=== PATIENT | male | born 1960 | race Caucasian/White ===

== ENCOUNTER 2017-01-15 10:23 | Inpatient (IN) | payer MEDICARE ==
--- NOTE | ~2017-01-15 | CN ---
Consultation Report [facility] [address] [place]. [address] NAME: VINNY STAUFFER : 58 STATUS : ADM IN PAT#: [id number] AGE: 56 ADM/REG DATE : 01/15/17 MR#: [id number] REPORT SERV DATE: 01/16/17 DICTATED BY: KAM RAZO DATE: 01/15/17 REPORT STATUS : Draft TRANSCRIBED BY: MODL DATE: 01/15/17 GI CONSULTATION DATE OF CONSULTATION: 01/15/2017 REASON FOR CONSULTATION: Evaluation and management of acute blood loss anemia and melanotic stools. HISTORY OF PRESENT ILLNESS: Mr. Stauffer is a 56-year-old male patient, who is known to Dr. Venkata Tirado, who presented to [facility] on the 01/15/2017 with a chief complaint of chest discomfort. He has history of recent coronary artery stenting with Dr. Bhatti in October of 2016 secondary to 60% to 70% stenosis. Per the 's report, he has been on the regimen of Brilinta since then. Per the patient's and 's report, he has had continued epigastric abdominal pain, chest discomfort since his stents were placed. He states that he is on Zantac as well as Protonix. He took Mylanta today which helped his discomfort for a short period of time which have just returned with a vengeance per the . The patient states that he has noticed black stools for the last month. He has been markedly short of breath on exertion. He says barely just walking from his chair to the kitchen will cause some epigastric and chest discomfort. He has no nausea, vomiting, or dysphagia. No odynophagia. No bright red blood per rectum. He had EGD and colonoscopy with Dr. Tirado in December of 2013. Upper endoscopy showed Selina esophagitis, hiatal hernia, normal duodenum. Colonoscopy was done with colon where polyps being removed as well as non-thrombosed hemorrhoids being found. He was set to repeat his endoscopy this year actually. He is presently going for an echo. He has been on Brilinta. His last dose was yesterday. His admission hemoglobin was 6.4. He has received one unit of packed red blood cells and that only improved it to 7.0. His INR is 1.1 with a negative troponin. I have discussed with the patient as well as , we will set him up for upper endoscopy to be done tomorrow with Dr. James. I did discuss risks, benefits, alternatives, and complications to include, but not limited to risk of bleeding, perforation, infection, reaction to medications, as well as cardiac and pulmonary side effects. They are agreeable to proceed. PAST MEDICAL HISTORY: Positive for coronary artery disease, stenting in October 2016, on Brilinta and aspirin; dizziness; migraines; hypertension; COPD with continued tobacco abuse; back surgery and spinal fusion; GERD; hiatal hernia, GI bleed, internal hemorrhoids, anxiety. PAST SURGICAL HISTORY: Back surgery, tonsillectomy, heart catheterization, PCI, back injections. SOCIAL HISTORY: Past history of alcoholism, last drink approximately one year ago. Pain Management with chronic back pain. Positive tobacco 1-1/2 packs per day. FAMILY HISTORY: Positive for colon polyps. Consultation Report [address] [address] NAME: VINNY STAUFFER : 58 STATUS : ADM IN [facility]#: [id number] AGE: 56 ADM/REG DATE : 01/15/17 MR#: [id number] REPORT SERV DATE: 01/16/17 DICTATED BY: KAM RAZO DATE: 01/15/17 REPORT STATUS : Draft TRANSCRIBED BY: LIZ DATE: 01/15/17 ALLERGIES: LISTED TO PAXIL, DOXYCYCLINE, ERYTHROMYCIN, PRILOSEC, PREVACID. HOME MEDICATIONS: Aspirin, Proventil, Cardia, Zantac, Protonix, Spiriva, Symbicort, Crestor, Pravachol, Valium, Endocet, Clozaril, Brilinta, MiraLAX, and nitroglycerin. REVIEW OF SYSTEMS: A 10-point review of systems obtained, pertinent positives addressed in the history of present illness. PHYSICAL EXAMINATION: VITAL SIGNS: Temperature 98.7, pulse 76, respirations 20, blood pressure 147/65. NEURO: Reveals an alert, male, resting in bed with no focal deficits. GENERAL: Cooperative in no apparent distress. Awake, alert, and oriented x3. HEAD, EARS, EYES, NOSE, AND THROAT: Anicteric. Pupils equal, round, reactive to light accommodation. Normocephalic and atraumatic. NECK: No JVD. No palpable nodes. LUNGS: Diminished throughout. Coarse in the bases. Normal respiratory effort exhibited. CARDIOVASCULAR SYSTEM: Regular rate and rhythm. ABDOMEN: Round, soft, tenderness to palpation in the epigastric region. No rebound or guarding elicited on exam. Active bowel sounds in all four quadrants. EXTREMITIES: No edema. Normal distal pulses. SKIN: Warm, dry, and intact. PERTINENT LABORATORY DATA: Sodium is 140, potassium 4.5, BUN is 6, creatinine is 0.73. White count 7.5, hemoglobin 6.4 with a hematocrit of 20.3. It should be noted that in November, he had a hemoglobin of 10.7 with a hematocrit of 30.5. His MCV is 78.7, MCH is 24.8, MCH is 31.5, platelet count 247, INR of 1.1. ASSESSMENT AND PLAN: 1. Melanotic stools/upper gastrointestinal bleed. Question peptic ulcer disease, arteriovenous malformations. 2. Acute blood loss anemia, status post transfusion with slight increase. 3. History of coronary artery disease, status post stents in October 2016, on Brilinta, last dose 01/14/2017. 4. Epigastric abdominal pain. PLAN: 1. Transfuse an additional one unit of packed red blood cells. 2. N.p.o. after midnight. 3. Start Protonix drip. 4. EGD in the morning with Dr. James. We will follow H and H, transfuse as needed. Other recommendations to follow endoscopy. Consultation Report [address] [place]. [address] NAME: VINNY STAUFFER : 58 STATUS : ADM IN [facility]#: [id number] AGE: 56 ADM/REG DATE : 01/15/17 MR#: [id number] REPORT SERV DATE: 01/16/17 DICTATED BY: KAM ARZO DATE: 01/15/17 REPORT STATUS : Draft TRANSCRIBED BY: LIZ DATE: 01/15/17 GAGE/LIZ BIKA Lacey / [id number] CC: Karen Chow M.D.
--- NOTE | ~2017-01-15 | DS ---
Discharge Summary [facility] [address] [place]. [address] NAME: VINNY STAUFFER : 58 STATUS : DIS IN PAT#: [id number] AGE: 56 ADM/REG DATE : 01/15/17 MR#: [id number] REPORT SERV DATE: 01/18/17 DICTATED BY: YOUNG JACKSON DATE: 01/17/17 REPORT STATUS : Draft TRANSCRIBED BY: MODL DATE: 01/17/17 ADMISSION DATE: 01/15/2017 DISCHARGE DATE: 01/17/2017 CONSULTANTS: 1. Dewayne James M.D., GI. 2. Shar Jackson, PRESS CLEANER with Dr. Adonay Bhatti M.D., F.A.C.C., Cardiology. DISCHARGE DIAGNOSES: 1. Acute upper gastrointestinal bleed with melena unclear site of origin. 2. Acute blood loss anemia requiring transfusion two units packed red cells. 3. Coronary artery disease with recent PCI drug-eluting stent on 10/12/2016 at [facility] with Dr. Bhatti. 4. Chronic obstructive pulmonary disease in an active smoker. 5. History of chronic low back pain. 6. History of colonic polyps in the past. They were reported to be tubulovillous adenomas without high-grade dysplasia. 7. Previous suspected candidal esophagitis in 2013. 8. Hypertension. 9. Peripheral arterial disease involving the right carotid. HISTORY: This patient underwent a stent to an unknown vessel by Dr. Bhatti at [place] on 10/12/2016. It may have been the ostium of the second obtuse marginal. It was reported that it is a drug-eluting stent and as such he was sent home on aspirin and Brilinta. The patient states he developed some epigastric pain not only during the catheterization procedure, but had it intermittently thereafter located in the epigastrium, burning-type, pressure-type, nitroglycerin without help, Mylanta would help a little. He started on some Protonix a few days prior to coming to the emergency room, but had not gotten any benefit from it. He went to see Dr. Bhatti in the office. He felt like he was unable to walk very far because he was having this pain. He was sent to the emergency room where he was noted to have a hemoglobin of 6.4, and guaiac-positive stool. The patient states he was not taking any iron, not taking any Pepto-Bismol, not taking any charcoal capsules. The patient was admitted to our team and placed on Protonix infusion. He was given two units of packed red cells. His lowest hemoglobin was 6.4 on admission, at discharge it was 7.9. EGD the day after admission by Dr. James revealed normal esophagus, stomach, and duodenum. Colonoscopy preparation took place, he passed a black stool then it was more brownish and he had a colonoscopy on 01/17/2017 showing some nonbleeding internal hemorrhoids, otherwise normal exam. GI, Dr. James, recommends Protonix b.i.d. be continued for at least six weeks. Dr. James indicated it was fine to start the patient back on anti-platelet therapy as needed. Cardiology recommends that the patient get back on to his Brilinta and aspirin to reduce the risk of in-stent thrombosis and myocardial infarction. I have explained to the patient, on two occasions 01/16/2017 and 01/17/2017, and on the on one occasion on 01/16/2017 the importance of being back on these medicines even though we realize that he may bleed again. We stressed that if he has any recurrent black stools that he come to the emergency room. He has had no further chest pain. No further epigastric pain. He is Discharge Summary [address] [address] NAME: VINNY STAUFFER : 58 STATUS : DIS IN PAT#: [id number] AGE: 56 ADM/REG DATE : 01/15/17 MR#: [id number] REPORT SERV DATE: 01/18/17 DICTATED BY: YOUNG JACKSON DATE: 01/17/17 REPORT STATUS : Draft TRANSCRIBED BY: MODL DATE: 01/17/17 eating well. He is ambulating well. No nausea. No dyspnea. He is encouraged to stop smoking. He had a right carotid bruit. Carotid ultrasound revealed that he has moderate irregular plaque involving the carotid bulb and the proximal internal carotid artery on the right. There was mild disease on the left. The vertebral arteries are patent with antegrade flow bilaterally. The right internal carotid artery had borderline category 1-2 disease, the left internal carotid artery had category 1 level disease. This will need longitudinal followup with his PCP. DISCHARGE MEDICATIONS: 1. Pravachol 40 mg q.h.s. 2. Spiriva one capsule inhale daily. 3. Symbicort 160/4.5 mcg two puffs twice a day. 4. Tylenol 650 mg q.6 hours p.r.n. mild pain. 5. Mylanta p.r.n. indigestion. 6. Baclofen 2.5 mg p.r.n. muscle spasm. 7. Valium 5 mg twice a day p.r.n. anxiety (chronic medicine for him). 8. Nitroglycerin 0.4 mg sublingual p.r.n. chest pain. 9. Protonix 40 mg b.i.d. (also wrote him a new prescription so he would run out, he states he does still have some at home). 10.MiraLAX one packet daily p.r.n. constipation. 11.Aspirin 81 mg daily. 12.Brilinta 90 mg twice a day. 13.Lisinopril 40 mg daily (his creatinine has been normal here at less than 1). 14.Cartia XT 180 mg once a day. 15.Zantac 300 mg twice a day. 16.Percocet 7.5 mg q.4 hours p.r.n. pain which is chronic. 17.He has some [id number] cough syrup that he uses periodically. I spent 39 minutes today with the patient and talking with his nurse and also with case management, and preparing his discharge plan. ETHAN/LAURENTL Young Jackson M.D. / [id number] CC: Young Jackson M.D. Adonay Bhatti M.D., F.A.C.C. Venkata Tirado M.D. Brionna Alonso, TAX ATTORNEY
--- NOTE | ~2017-01-15 | EGD ---
EGD REPORT [facility] [address] [address] NAME: DUSTY GONZALEZ : 58 STATUS : ADM IN PAT#: [id number] AGE: 56 ADM/REG DATE : 01/15/17 MR#: [id number] REPORT SERV DATE: 01/17/17 DICTATED BY: MAXDEWAYNE CASILLAS DATE: 01/17/17 REPORT STATUS : Draft TRANSCRIBED BY: [employer] DATE: 01/17/17 [facility] Center Patient Name: Dusty Gonzalez Date of : 1960 Attending MD: DEWAYNE SANTANA MD Procedure Date No Time: 01/17/2017 Procedure: Colonoscopy Indications: Melena, Anemia Referring MD: ALMA ZENG MD Medicines: Monitored Anesthesia Care Complications: No immediate complications. Estimated blood loss: None. Procedure: Pre-Anesthesia Assessment: - ASA Grade Assessment: III - A patient with severe systemic disease. After I obtained informed consent, the scope was passed under direct vision. Throughout the procedure, the patient's blood pressure, pulse, and oxygen saturations were monitored continuously. The CF [id number] was introduced through the anus and advanced to the cecum, identified by appendiceal orifice and ileocecal valve. The colonoscopy was performed without difficulty. The patient tolerated the procedure well. The quality of the bowel preparation was fair. Findings: The perianal and digital rectal examinations were normal. Pertinent negatives include no palpable rectal lesions. Non-bleeding internal hemorrhoids were found during retroflexion and were medium-sized. The exam was otherwise without abnormality. Impression: - Non-bleeding internal hemorrhoids. - The examination was otherwise normal. - No sign of new or old blood on this examination Recommendation: - Discharge patient to home (ambulatory). - Return to GI clinic in 2 weeks. Procedure Code(s): --- Professional --- 90241, Colonoscopy, flexible, proximal to splenic flexure; diagnostic, with or without collection of specimen(s) by brushing or washing, with or without colon decompression (separate procedure) Diagnosis Code(s): --- Professional --- EGD REPORT [facility] [address] [place] [address]. [address] NAME: DUSTY GONZALEZ : 58 STATUS : ADM IN [facility]#: [id number] AGE: 56 ADM/REG DATE : 01/15/17 MR#: [id number] REPORT SERV DATE: 01/17/17 DICTATED BY: DEWAYNE SANTANA DATE: 01/17/17 REPORT STATUS : Draft TRANSCRIBED BY: [employer] DATE: 01/17/17 K64.8, Other hemorrhoids K92.1, Melena D64.9, Anemia, unspecified CPT copyright 2013 [employer]. All rights reserved. The codes documented in this report are preliminary and upon graduate teaching associate review may be revised to meet current compliance requirements. Dewayne Santana MD DEWAYNE SANTANA MD 01/17/2017 8:56 AM This report has been signed electronically. Number of Addenda: 0 Note Initiated On: 01/17/2017 8:13 AM Scope Withdrawal Time 0 hours 8 minutes 1 second [address] [place] [address]
--- NOTE | ~2017-01-15 | HP ---
History And Physical [place] [id number] [facility] [place]. [address] NAME: VINNY STAUFFER : 58 STATUS : ADM IN PAT#: [id number] AGE: 56 ADM/REG DATE : 01/15/17 MR#: [id number] REPORT SERV DATE: 01/15/17 DICTATED BY: GRAZYNA MAJOR DATE: 01/15/17 REPORT STATUS : Draft TRANSCRIBED BY: MODVahe DATE: 01/15/17 DATE OF ADMISSION: 01/15/2017 REASON FOR ADMISSION: Upper gastrointestinal bleeding and angina pectoris. HISTORY OF PRESENT ILLNESS: This is a 56-year-old white male who has been having pain accelerating over the last two weeks. It is a burning type of chest pain, it is not relieved with nitroglycerin. It is worsened with exertion and eased with rest. He has had no cough. No fever, chills, or night sweats. No productive cough. No hemoptysis. He has had no fits, seizures, or convulsions. He went to Dr. Bhatti's office today but was unable to walk into the waiting room because he was having chest pain. He was sent to the emergency room and evaluated by Dr. Ignacio Barraza. Dr. Garcia found him to have a hematocrit of 20.6%. His stool was positive for blood and black. The black bowel movement has been going on for the last two weeks as well. He is taking Brilinta and aspirin after having a cardiac stent placed by Dr. Bhatti. The patient had chest pain on the cardiac catheterization table with the stenting that did get better afterwards but he has always had exertional chest pain even after the stenting was done. He continues to smoke cigarettes about a pack a day, down from 2 packs a day. He has reformed his alcoholism over the last two years. PAST MEDICAL HISTORY: He is disabled from [employer]. He worked at [employer] for about two years, hurt his back, and he has had several operations on his back since his disability. Now lives in a duplex, does maintenance work around the duplex, and does some collection of metal. SOCIAL HISTORY: He drinks no alcohol at all. He has attended voodoo in the past. He has been 4 times, most recently 16 years. He grew up in [place], was in the [employer] for three years. The patient is a reformed alcoholic. He quit for about six years, then had backsliding and then quit again a second time 2 years ago, mostly just beer all the time. He has had 4 marriages, last one 16 years, he had one child, who at age 27 of drug and alcohol abuse. SURGICAL HISTORY: He has had back surgery two or three times in the past and had tonsillectomy and adenoidectomy in the remote past. He had a colonoscopy done for polyps by [facility], Dr. Venkata Tirado. HOME MEDICATIONS: His home medications include the following: Aspirin 81 mg p.o. daily; baclofen 10 mg 2.5 to 10 mg p.r.n. back and muscle spasm; Symbicort 160/4.5 two puffs twice a day; Valium 5 mg p.o. b.i.d. p.r.n.; diltiazem 180 mg XL 1 p.o. q.a.m.; lisinopril 40 mg p.o. daily; nitroglycerin 0.4 mg p.o. daily; cough syrup as needed; pantoprazole 40 mg p.o. b.i.d.; ranitidine 300 mg p.o. b.i.d.; oxycodone 7.5/325 one p.o. q.i.d. p.r.n.; MiraLAX 17 g p.r.n. constipation; pravastatin 40 mg p.o. at bedtime x4 days; rosuvastatin 20 mg p.o. at bedtime, however, he is having leg cramps with this. Ranitidine 300 mg p.o. b.i.d.; History And Physical [address] [address] NAME: VINNY STAUFFER : 58 STATUS : ADM IN [facility]#: [id number] AGE: 56 ADM/REG DATE : 01/15/17 MR#: [id number] REPORT SERV DATE: 01/15/17 DICTATED BY: GRAZYNA MAJOR DATE: 01/15/17 REPORT STATUS : Draft TRANSCRIBED BY: MODL DATE: 01/15/17 Brilinta or ticagrelor 90 mg p.o. daily; and Spiriva 1 puff each a.m. ALLERGIES: INCLUDE THE FOLLOWING: ERYTHROMYCIN BASE; OMEPRAZOLE; LANSOPRAZOLE; PAROXETINE CAUSED ITCHING; AND DOXYCYCLINE CAUSES UPSET STOMACH. FAMILY HISTORY: Mother is alive, age 75. She has had 5 stents placed in her heart in the past. Father left when he was 4 years old. He went to [place] for his when he was said to have from non-Hodgkin's lymphoma. He has 6 brothers and sisters. One brother of alcoholism. Another sister has had ASCVD with stenting. REVIEW OF SYSTEMS: He has had mostly chest pain radiating as above; melena over the last two weeks. No hematemesis, nausea, vomiting, or diarrhea. No fits, seizures, or convulsions, unilateral weakness, fever, chills, or night sweats. Remainder of the review of systems is negative. PHYSICAL EXAMINATION: GENERAL: White male, in no acute distress. VITAL SIGNS: Blood pressure 147/75, respiratory rate 18, heart rate 90, and afebrile to touch. HEENT: EOMI. Sclerae clear. Conjunctivae pink. His moustache and corbin have tobacco stains. NECK: Bruit on the right side, greater than the left. CHEST: Clear to A and P. HEART: Regular S1, S2 without murmur, gallop, or click. ABDOMEN: Obese, protuberant, and nontender. Bowel sounds positive. He does have slight reproducible tenderness in the epigastrium but no masses felt. EXTREMITIES: Have no edema. Distal pulses not palpable. NEUROLOGIC: DTRs are brisk equal and symmetric bilaterally at the knees and ankles bilaterally. Coordination is intact. He has no tremor. Strength is symmetric and equal bilaterally. Speech is cogent and goal directed. He has no overt pallor. He does have a sallow appearance. SKIN: Without rash, ecchymosis, or bruising. LYMPHATICS: There is no adenopathy palpable. LABORATORY DATA AND IMAGING DATA: His portable chest x-ray showed right perihilar infiltrate. He was typed and screened. CT scan of his abdomen was done that showed no acute GI or obstruction which suggested heavy atherosclerosis in the aorta. His sodium 136, potassium 3.9, creatinine 0.87, BUN 8, glucose 119, magnesium 2.1, total protein 6.5, albumin 3.4, alkaline phosphatase 27, and lipase 165. Troponin less than 0.02. The hemoglobin was 6.4, hematocrit 20.3, MCV was 78.7, white count 7.5, and platelet count was 247. INR 1.0. History And Physical [address] [place]. [address] NAME: VINNY STAUFFER : 58 STATUS : ADM IN PAT#: [id number] AGE: 56 ADM/REG DATE : 01/15/17 MR#: [id number] REPORT SERV DATE: 01/15/17 DICTATED BY: GRAZYNA MAJOR DATE: 01/15/17 REPORT STATUS : Draft TRANSCRIBED BY: LIZ DATE: 01/15/17 EKG showed normal sinus rhythm, normal EKG, occasional PACs but he did have peaking of the T waves in the 3, 4, and 5, of questionable significance. ASSESSMENT: 1. Acute blood loss anemia with melena. 2. GI bleeding likely upper gastrointestinal with severe blood loss. 3. Angina pectoris secondary to blood loss, no relief with nitroglycerin, usually lasts about 30 minutes and relieved with rest as above. 4. Atherosclerotic cardiovascular disease with possible occluded stent. The patient has been having some chest pain with exertion. Recently he is a smoker and therefore expect a high closure rate. 5. Epigastric pain. Even his stent was being deployed, may be an angina pectoris equivalent and consistent with what he has been complaining about with the severe anemia. 6. BPH symptoms. 7. History of alcoholism. 8. History of 4 colon polyps, removed by Dr. Venkata Tirado. 9. Excessive ear wax buildup. 10.Bruit, right carotid. We will check ultrasound. PLAN: Transfuse 1 unit in the emergency room and second unit later. Consult GI for upper endoscopy. Hold the Brilinta and aspirin and transfuse as necessary for the maintenance of hemoglobin and hematocrit about 30. His MCV being low is suggestive of chronic GI blood loss. It may be more gastrointestinal pathology that is aggravated by the Brilinta and the aspirin causing this blood loss to be exacerbated. MARISSA/LIZ Grazyna Major M.D. / [id number] CC: Yovani Campbell M.D., FEwaA.CEwaC.
--- NOTE | ~2017-01-15 | CN ---
Consultation Report [facility] [address] [place]. [address] NAME: VINNY STAUFFER : 58 STATUS : ADM IN PAT#: [id number] AGE: 56 ADM/REG DATE : 01/15/17 MR#: [id number] REPORT SERV DATE: 01/16/17 DICTATED BY: BRYNN JACKSON DATE: 01/15/17 REPORT STATUS : Draft TRANSCRIBED BY: MODL DATE: 01/15/17 CARDIOLOGY CONSULTATION DATE OF CONSULTATION: 01/15/2017 HISTORY OF PRESENT ILLNESS: The patient is a pleasant 56-year-old white male with a history of recent cardiac stenting, who was referred to the emergency department from my office this morning. He had been having some increasing burning epigastric pain and he had come in for a visit, but was experiencing severe discomfort this morning that he was directed to the ER by my staff prior to being seen. He was found to have profound anemia and was admitted for workup of acute GI bleed. The patient had a cardiac catheterization on 10/12/2016, which showed a normal left ventricular ejection fraction of 65%. He had a borderline lesion in the ostium of the second obtuse marginal branch that was not significant by FFR. There was a second lesion in the left circumflex just distal to the origin of the second obtuse marginal branch which was significant by FFR and the patient underwent drug-eluting stent placement with a Resolute stent. The patient has been taking his anti-platelet medication aspirin and Brilinta as prescribed. He reports some fairly focal mid epigastric pain that is burning in quality as well as some pressure. This has increased in frequency and severity over the past month to the point where he was causing significant distress over the last week. He seemed to be worsened by exertion as well as certain types of foods at times. It was not relieved by nitroglycerin, but was relieved by Mylanta. The patient has some shortness of breath that he attributes to Brilinta, but has not experienced any dyspnea on exertion. He does report a history of black tarry stools for at least the past month. PAST MEDICAL HISTORY: Significant for hypertension, hyperlipidemia, coronary artery disease, COPD, and gastroesophageal reflux disease. FAMILY HISTORY: Positive for coronary artery disease in his mother, sister, and maternal grandmother. SOCIAL HISTORY: The patient smokes two packs per day and has done so since age of 15. REVIEW OF SYSTEMS: The patient denies nausea, vomiting, diarrhea, or dysuria. He does report black tarry stools over the past month. He complains of some intermittent lightheadedness as well as some shortness of breath, which is not necessarily exertional. No recent fever, chills, fatigue, or weight loss. No syncope or presyncope. PHYSICAL EXAMINATION: VITAL SIGNS: Blood pressure is 147/65, heart rate 76 and regular, respirations 18 and nonlabored. The patient is afebrile. GENERAL APPEARANCE: The patient is a well-developed, well-nourished white male, in no acute Consultation Report [address] [address] NAME: VINNY STAUFFER : 58 STATUS : ADM IN [facility]#: [id number] AGE: 56 ADM/REG DATE : 01/15/17 MR#: [id number] REPORT SERV DATE: 01/16/17 DICTATED BY: BRYNN JACKSON DATE: 01/15/17 REPORT STATUS : Draft TRANSCRIBED BY: LIZ DATE: 01/15/17 distress. HEENT: Unremarkable. NECK: Shows no jugular venous distention with good carotid upstroke. There is a soft carotid bruit noted on the right. CHEST: Remarkable for some scattered inspiratory wheezes bilaterally. CARDIOVASCULAR: The PMI is lateral to the midclavicular line. S1 is normal. S2 is narrowly split. There is a soft grade 1/6 systolic murmur at the base. No gallop is present. ABDOMEN: Soft and nontender with normal bowel sounds. EXTREMITIES: No cyanosis, clubbing, or edema. SKIN: Warm and dry with no pallor or icterus. NEURO/PSYCH: The patient is alert and oriented x3 with appropriate affect. LABORATORY AND DIAGNOSTIC DATA: EKG shows normal sinus rhythm with PACs at a rate of 91 beats per minute. It is otherwise unremarkable with no significant T-wave abnormalities. CBC shows a white count of 7.5, hemoglobin of 6.4, hematocrit 20.3, these have dropped from 10.7 and 30.5 on 11/13/2016. The patient's platelet count is normal at 247. Chemistry shows sodium of 136, potassium 3.9, BUN 8, creatinine 0.87, magnesium 2.1. Troponin is negative x2. IMPRESSION: 1. Acute blood loss anemia secondary to gastrointestinal bleed. 2. Coronary artery disease, status post drug-eluting stent placement three months ago. 3. Epigastric pain, most likely related to a gastric ulcer or other gastrointestinal pathology. 4. Tobacco abuse. 5. Hypertension. 6. Hyperlipidemia. PLAN: Obviously, the patient needs rather urgent endoscopy to evaluate the source of his bleeding. The patient's Brilinta and aspirin are currently being held pending endoscopy. I have discussed with the patient that given his recent drug-eluting stent placement being off his anti-platelet medications, does place him at increased risk of stent thrombosis. However, given the acute nature of his GI bleed, I believe this risk is unavoidable. Hopefully, the bleeding can be controlled and he can be restarted on his anti-platelet regimen within the next couple of days. The patient's cardiovascular risk is acceptable to proceed with endoscopy, but I would emphasize the importance of resuming his anti-platelet regimen just as soon as this could possibly be done safely. Thank you very much for this consultation. We appreciate your care of our mutual patient and we will continue to follow along with you. MARYJANEB/LIZ Consultation Report [place] [id number] [facility] [place]. [address] NAME: VINNY STAUFFER : 58 STATUS : ADM IN PAT#: [id number] AGE: 56 ADM/REG DATE : 01/15/17 MR#: [id number] REPORT SERV DATE: 01/16/17 DICTATED BY: BRYNN JACKSON DATE: 01/15/17 REPORT STATUS : Draft TRANSCRIBED BY: LIZ DATE: 01/15/17 Brynn Jackson NP / [id number] CC: Yovani Diaz M.D. Steven Stubblefield, M.D., F.A.C.C.
--- NOTE | ~2017-01-15 | EGD ---
EGD REPORT [facility] [address] [address] NAME: DUSTY GONZALEZ : 58 STATUS : ADM IN PAT#: [id number] AGE: 56 ADM/REG DATE : 01/15/17 MR#: [id number] REPORT SERV DATE: 01/16/17 DICTATED BY: DEWAYNE SANTANA DATE: 01/16/17 REPORT STATUS : Draft TRANSCRIBED BY: [facility] DATE: 01/16/17 Endoscopy Center Patient Name: Dusty Gonzalez Date of : 1960 Attending MD: DEWAYNE SANTANA MD Procedure Date No Time: 01/16/2017 Procedure: Upper GI endoscopy Indications: Iron deficiency anemia secondary to chronic blood loss, Melena Medicines: Monitored Anesthesia Care Complications: No immediate complications. Estimated blood loss: None. Procedure: After obtaining informed consent, the endoscope was passed under direct vision. Throughout the procedure, the patient's blood pressure, pulse, and oxygen saturations were monitored continuously. The GIF [id number] was introduced through the mouth, and advanced to the second part of duodenum. The upper GI endoscopy was accomplished without difficulty. The patient tolerated the procedure well. Findings: The examined esophagus was normal. The entire examined stomach was normal. The examined duodenum was normal. The cardia and gastric fundus were normal on retroflexion. The exam was without abnormality. Impression: - The examination was normal. Recommendation: - Use Protonix (pantoprazole) 40 mg PO BID for 6 weeks. - Clear liquid diet today. - Perform a colonoscopy tomorrow. Procedure Code(s): --- Professional --- 09180, Esophagogastroduodenoscopy, flexible, transoral; diagnostic, including collection of specimen(s) by brushing or washing, when performed (separate procedure) Diagnosis Code(s): --- Professional --- K44.9, Diaphragmatic hernia without obstruction or gangrene D50.0, Iron deficiency anemia secondary to blood loss (chronic) K92.1, Melena EGD REPORT [facility] [address] [place] [address] NAME: DUSTY GONZALEZ : 58 STATUS : ADM IN [facility]#: [id number] AGE: 56 ADM/REG DATE : 01/15/17 MR#: [id number] REPORT SERV DATE: 01/16/17 DICTATED BY: DEWAYNE SANTANA DATE: 01/16/17 REPORT STATUS : Draft TRANSCRIBED BY: [employer] DATE: 01/16/17 CPT copyright 2013 [employer]. All rights reserved. The codes documented in this report are preliminary and upon security operations center operator review may be revised to meet current compliance requirements. Dewayne Santana MD DEWAYNE SANTANA MD 01/16/2017 9:29 AM This report has been signed electronically. Number of Addenda: 0 Note Initiated On: 01/16/2017 9:04 AM Scope Withdrawal Time 0 hours 0 minutes 0 seconds [id number] [place] [address]
[2017-01-15 10:18] LABS: BASOPHILS 0.7 %; BASOPHILS ABSOLUTE 0.05 10/3/uL (0.0-0.16); EOSINOPHILS 3.3 %; EOSINOPHILS ABSOLUTE 0.25 10/3/uL (0.0-0.53); HEMATOCRIT 20.3 % (40.0-51.0); HEMOGLOBIN 6.4 g/dL (13.6-17.8); IMMATURE GRANULOCYTES 0.3 %; IMMATURE GRANULOCYTES ABSOLUTE 0.02 10/3/uL (0.0-0.11); LYMPHOCYTES 27.5 %; LYMPHOCYTES ABSOLUTE 2.07 10/3/uL (0.67-4.30); MEAN CORPUSCULAR VOLUME 78.7 fL (80-100); MONOCYTES 7.4 %; MONOCYTES ABSOLUTE 0.56 10/3/uL (0.21-1.20); NEUTROPHILS 60.8 %; NEUTROPHILS ABSOLUTE 4.59 10/3/uL (2.02-8.40); PLATELET COUNT 247 10/3/uL (150-400); RBC DISTRIBUTION WIDTH 14.2 % (12.0-16.0); RED CELL COUNT 2.58 10/6/uL (4.7-6.1); WHITE BLOOD CELLS 7.5 10/3/uL (4.5-10.5)
[2017-01-15 10:19] LABS: MEAN CORPUS HGB CONC 31.5 g/dL (32.0-36.0); MEAN CORPUSCULAR HEMOGLOB 24.8 pg (26.0-34.0)
[2017-01-15 10:20] LABS: MANUAL DIFF NO %
[~2017-01-15 10:23] MED LIST: ADVAIR INH; ASAB PO; ATEN50 PO; CORFEN-DM OR; DILT-XR180 MG PO; ED A HIST OR; ENDOCET1 TA1 PO; FLEXERIL5 MG PO; FLONASE NAS; LISINOPRIL40 MG PO; MCZ25 PO; MIRALAXPKT PO; PRAVACHOL40 MG PO; RANITIDINE300 MG PO; SPIRIVA INH; V5 PO; ZANAFLEX 4 MG TA4 MG PO; ZANTAC300 MG PO; ZOCOR40 PO
[2017-01-15 10:25] LABS: INTERNATIONAL NORMAL RATI 1.1 UNITS (-); PARTIAL THROMBO TIME 30.3 SEC (22.5-37.2); PROTIME (NOT ORD) 13.9 SEC (12.0-14.5)
[2017-01-15 10:37] LABS: ALBUMIN 3.4 G/DL (3.5-5.0); BUN (BLOOD UREA NITROGEN) 8 MG/DL (6-23); CALCIUM, SERUM 8.1 MG/DL (8.5-10.4); CHEST PAIN PROFILE TAT 0 Hrs 25 Mins; CHLORIDE, SERUM 104 MMOL/L (96-112); CO2 (CARBON DIOXIDE) 24 MMOL/L (24-34); CREATININE 0.87 MG/DL (0.70-1.30); GFR AFRICAN AMERICAN 111 ML/MIN (>=60); GFR NON AFRICAN AMERICAN 96 ML/MIN (>=60); GLUCOSE, SERUM 119 MG/DL (60-99); POTASSIUM, SERUM 3.9 MMOL/L (3.5-5.3); SGOT(AST) 12 U/L (5-40); SGPT(ALT) 21 U/L (5-65); SODIUM, SERUM 136 MMOL/L (135-148); TOTAL BILIRUBIN 0.3 MG/DL (0-1.2); TOTAL PROTEIN 6.5 G/DL (6.0-8.5); TROPONIN I <0.02 NG/ML (<0.05)
[2017-01-15 10:38] LABS: ALKALINE PHOSPHATASE 27 U/L (45-117); DIRECT BILIRUBIN < 0.1 MG/DL (0.0-0.4); INDIRECT BILIRUBIN(NOT ORDER) 0.2 MG/DL (0.1-0.9)
[2017-01-15] MEDS ORDERED: ASAB PO (10:38)
[2017-01-15] MEDS ORDERED: LISINOPRIL40 MG PO (10:38)
[2017-01-15] MEDS ORDERED: CARTIA XT180 MG/24 PO (10:39)
[2017-01-15] MEDS ORDERED: PROTONIX PO (10:39)
[2017-01-15] MEDS ORDERED: SYMBICORT 160/41 INH INH (10:39)
[2017-01-15] MEDS ORDERED: ZANTAC300 MG PO (10:39)
[2017-01-15] MEDS ORDERED: SPIRIVA INH (10:39)
[2017-01-15] MEDS ORDERED: CRESTOR20 MG PO (10:41)
[2017-01-15] MEDS ORDERED: V5 PO (10:43)
[2017-01-15] MEDS ORDERED: PRAVACHOL40 MG PO (10:43)
[2017-01-15] MEDS ORDERED: LIOR10 PO (10:44)
[2017-01-15] MEDS ORDERED: ENDOCET1 TA1 PO (10:44)
[2017-01-15] MEDS ORDERED: COUGH SYRUP OTC PO (10:45)
[2017-01-15] MEDS ORDERED: BRILINTA90 MG PO (10:45)
[2017-01-15] MEDS ORDERED: MIRALAX POWDER1 PKT PO (10:46)
[2017-01-15] MEDS ORDERED: NITROSTAT0.4 MG SL (10:47)
[2017-01-15 15:27] LABS: BUN (BLOOD UREA NITROGEN) 6 MG/DL (6-23); CHLORIDE, SERUM 109 MMOL/L (96-112); CO2 (CARBON DIOXIDE) 24 MMOL/L (24-34); CPK 104 U/L (0-200); CREATININE 0.73 MG/DL (0.70-1.30); GFR AFRICAN AMERICAN 119 ML/MIN (>=60); GFR NON AFRICAN AMERICAN 103 ML/MIN (>=60); GLUCOSE, SERUM 114 MG/DL (60-99); POTASSIUM, SERUM 4.5 MMOL/L (3.5-5.3); SODIUM, SERUM 140 MMOL/L (135-148); TROPONIN I <0.02 NG/ML (<0.05)
[2017-01-15 19:13] LABS: HEMATOCRIT 21.4 % (40.0-51.0)
[2017-01-15 19:14] LABS: HEMOGLOBIN 6.9 g/dL (13.6-17.8)
[2017-01-16 05:25] LABS: BASOPHILS 0.8 %; BASOPHILS ABSOLUTE 0.06 10/3/uL (0.0-0.16); EOSINOPHILS 2.8 %; EOSINOPHILS ABSOLUTE 0.21 10/3/uL (0.0-0.53); HEMATOCRIT 23.3 % (40.0-51.0); HEMOGLOBIN 7.5 g/dL (13.6-17.8); IMMATURE GRANULOCYTES 0.3 %; IMMATURE GRANULOCYTES ABSOLUTE 0.02 10/3/uL (0.0-0.11); INTERNATIONAL NORMAL RATI 1.1 UNITS (-); LYMPHOCYTES 26.5 %; LYMPHOCYTES ABSOLUTE 1.96 10/3/uL (0.67-4.30); MEAN CORPUS HGB CONC 32.2 g/dL (32.0-36.0); MEAN CORPUSCULAR VOLUME 80.9 fL (80-100); MEAN PLATELET VOLUME 10.4 fL (9.2-13.0); MONOCYTES 7.6 %; MONOCYTES ABSOLUTE 0.56 10/3/uL (0.21-1.20); PLATELET COUNT 216 10/3/uL (150-400); PROTIME (NOT ORD) 14.3 SEC (12.0-14.5); RBC DISTRIBUTION WIDTH 14.4 % (12.0-16.0); RED CELL COUNT 2.88 10/6/uL (4.7-6.1); WHITE BLOOD CELLS 7.4 10/3/uL (4.5-10.5)
[2017-01-16 05:26] LABS: MANUAL DIFF NO %
[2017-01-16 05:39] LABS: BUN (BLOOD UREA NITROGEN) 5 MG/DL (6-23); CALCIUM, SERUM 8.2 MG/DL (8.5-10.4); CHLORIDE, SERUM 110 MMOL/L (96-112); CO2 (CARBON DIOXIDE) 22 MMOL/L (24-34); CREATININE 0.67 MG/DL (0.70-1.30); GFR AFRICAN AMERICAN 124 ML/MIN (>=60); GFR NON AFRICAN AMERICAN 107 ML/MIN (>=60); GLUCOSE, SERUM 100 MG/DL (60-99); SODIUM, SERUM 141 MMOL/L (135-148); TROPONIN I <0.02 NG/ML (<0.05)
[2017-01-16 12:16] LABS: HEMATOCRIT 25.1 % (40.0-51.0); HEMOGLOBIN 8.2 g/dL (13.6-17.8)
[2017-01-16 18:45] LABS: HEMATOCRIT 26.2 % (40.0-51.0); HEMOGLOBIN 8.5 g/dL (13.6-17.8)
[2017-01-17 00:24] LABS: HEMATOCRIT 24.4 % (40.0-51.0)
[2017-01-17 06:39] LABS: BUN (BLOOD UREA NITROGEN) 4 MG/DL (6-23); CALCIUM, SERUM 8.3 MG/DL (8.5-10.4); CHLORIDE, SERUM 106 MMOL/L (96-112); CO2 (CARBON DIOXIDE) 23 MMOL/L (24-34); CREATININE 0.66 MG/DL (0.70-1.30); GFR AFRICAN AMERICAN 124 ML/MIN (>=60); GFR NON AFRICAN AMERICAN 107 ML/MIN (>=60); GLUCOSE, SERUM 103 MG/DL (60-99); POTASSIUM, SERUM 3.8 MMOL/L (3.5-5.3); SODIUM, SERUM 141 MMOL/L (135-148)
[2017-01-17 06:41] LABS: BASOPHILS 0.5 %; BASOPHILS ABSOLUTE 0.04 10/3/uL (0.0-0.16); EOSINOPHILS 3.2 %; EOSINOPHILS ABSOLUTE 0.25 10/3/uL (0.0-0.53); HEMATOCRIT 24.1 % (40.0-51.0); HEMOGLOBIN 7.9 g/dL (13.6-17.8); IMMATURE GRANULOCYTES 0.5 %; IMMATURE GRANULOCYTES ABSOLUTE 0.04 10/3/uL (0.0-0.11); LYMPHOCYTES 21.4 %; LYMPHOCYTES ABSOLUTE 1.66 10/3/uL (0.67-4.30); MEAN CORPUS HGB CONC 32.8 g/dL (32.0-36.0); MEAN CORPUSCULAR HEMOGLOB 26.4 pg (26.0-34.0); MEAN CORPUSCULAR VOLUME 80.6 fL (80-100); MEAN PLATELET VOLUME 10.4 fL (9.2-13.0); MONOCYTES 7.8 %; NEUTROPHILS 66.6 %; NEUTROPHILS ABSOLUTE 5.15 10/3/uL (2.02-8.40); PLATELET COUNT 211 10/3/uL (150-400); RBC DISTRIBUTION WIDTH 14.7 % (12.0-16.0); RED CELL COUNT 2.99 10/6/uL (4.7-6.1); WHITE BLOOD CELLS 7.7 10/3/uL (4.5-10.5)
[2017-01-17 06:42] LABS: MANUAL DIFF NO %
[2017-01-17] MEDS ORDERED: PROTONIX PO (12:01)
[2017-01-17] MEDS ORDERED: ALMACONE PO (12:07)
== END 2017-01-17 13:24 | disposition home or self-care (01) | DRG 378 ==
LOC: ER 10:23 → 1SO 10:53
PROVIDERS: Emergency Medicine; Hospitalist; Internal Medicine; Internal Medicine Gastroenterology; Nurse Practitioner Family
PROC: 30233N1 Transfusion of Nonautologous Red Blood Cells into Peripheral Vein, Percutaneous Approach (ICD-10-PCS; 2017-01-15)
PROC: 0DJ08ZZ Inspection of Upper Intestinal Tract, Via Natural or Artificial Opening Endoscopic (ICD-10-PCS; principal; 2017-01-16 09:11)
PROC: 0DJD8ZZ Inspection of Lower Intestinal Tract, Via Natural or Artificial Opening Endoscopic (ICD-10-PCS; 2017-01-17)
DX: K92.2 Gastrointestinal hemorrhage, unspecified (principal); D62 Acute posthemorrhagic anemia; K27.9 Peptic ulcer, site unspecified, unspecified as acute or chronic, without hemorrhage or perforation; I10 Essential (primary) hypertension; I25.119 Atherosclerotic heart disease of native coronary artery with unspecified angina pectoris; J44.9 Chronic obstructive pulmonary disease, unspecified; E78.5 Hyperlipidemia, unspecified; K21.9 Gastro-esophageal reflux disease without esophagitis; F17.210 Nicotine dependence, cigarettes, uncomplicated; I73.9 Peripheral vascular disease, unspecified; F10.21 Alcohol dependence, in remission; E78.00 Pure hypercholesterolemia, unspecified; K44.9 Diaphragmatic hernia without obstruction or gangrene; K64.8 Other hemorrhoids; G89.29 Other chronic pain; R09.89 Other specified symptoms and signs involving the circulatory and respiratory systems; M54.5 Low back pain; Z98.61 Coronary angioplasty status; Z86.010 Personal history of colon polyps; Z79.82 Long term (current) use of aspirin; Z79.891 Long term (current) use of opiate analgesic; Z79.899 Other long term (current) drug therapy; Z88.1 Allergy status to other antibiotic agents; Z88.8 Allergy status to other drugs, medicaments and biological substances
CPT/HCPCS: 36415; 36430; 71010; 74176; 80048; 80076; 82550; 83690; 83735; 84484; 85014; 85018; 85025; 85610; 85730; 86850; 86900; 86901; 86920; 93005; 93880; 94640; 96374; 99285; A9270-GY; C9113; J1170; J2405; P9016